=== PATIENT | female | born 1970 | race Caucasian/White ===

== ENCOUNTER 2020-07-28 11:24 | Emergency (ER) | payer OTHER ==
[~2020-07-28] VITALS: Ht 152.4 cm; Wt 66.2 kg
[~2020-07-28 11:24] MED LIST: CALCITRIOL0.5 MCG PO; MOTRIN800 MG PO; ORPH100T PO; PERCOCET 5/3251 TAB PO; Rocaltrol PO; Rocephin 2000 mg vial IV; SYNTHROID50 MCG; Synthroid PO; TENCON CAPSULE1 CAP PO; VANCOCIN HCL IV
[2020-07-28] MEDS ORDERED: SYNTHROID175 MCG PO (11:40)
[2020-07-28] MEDS ORDERED: KETO10TA2 PO (13:27)
[2020-07-28] MEDS ORDERED: NORFLEX100MG PO (13:28)
== END 2020-07-28 13:39 | disposition home or self-care (01) ==
LOC: ER 11:24
DX: M54.2 Cervicalgia (principal)

== ENCOUNTER 2020-10-31 11:49 | Emergency (ER) | payer OTHER ==
[~2020-10-31] VITALS: Ht 152.4 cm; Wt 66.2 kg
[~2020-10-31 11:49] MED LIST changes: +KETO10TA2 PO; +NORFLEX100MG PO; +SYNTHROID175 MCG PO
[2020-10-31] MEDS ORDERED: NORFLEX100MG PO (16:05)
[2020-10-31] MEDS ORDERED: KETO10TA2 PO (16:05)
== END 2020-10-31 16:15 | disposition home or self-care (01) ==
LOC: ER 11:49
DX: R51.9 Headache, unspecified (principal); Z03.818 Encounter for observation for suspected exposure to other biological agents ruled out; R53.81 Other malaise